=== PATIENT | male | born 1965 | race Caucasian/White ===

== ENCOUNTER 2019-06-12 07:00 | Outpatient (CLI) | payer BC, OTHER ==
[2019-06-12 17:44] LABS: #Basophils 0.1 thou/uL (0.0-0.2); #Eosinphils 0.2 thou/uL (0.0-0.7); #Lymphocytes 2.1 thou/uL (1.20-3.40); #Monocytes 0.5 thou/uL (0.11-0.59); #Neutrophils 3.7 thou/uL (1.40-6.50); %Basophils 1.2 % (0.0-1.0); %Eosinophils 2.9 % (0.0-10.0); %Lymphocytes 31.8 % (21.0-51.0); %Neutrophils 57.2 % (42.0-75.0); Hemoglobin 16.1 g/dL (14.0-18.0); Mean Corpuscular HGB CONC 32.9 g/dL (32.0-36.0); Mean Corpuscular Hemoglobin 31.4 pg (27.0-31.0); Mean Corpuscular Volume 95.4 fL (78.0-98.0); Mean Platelet Volume 8.2 fL (7.4-10.4); Platelet Count 241 thou/uL (130-400); RBC Distribution Width 11.8 % (11.5-14.5); Red Blood Cell (RBC) Count 5.13 mill/uL (4.70-6.10); White Blood Cell (WBC) Count 6.5 thou/uL (4.8-10.8)
[2019-06-12 18:03] LABS: Anion Gap 11 mmol/L (10-20); BUN (Urea Nitrogen) 10 mg/dL (8.4-25.7); Calc. Creatinine Clearance 0 mL/min (70-130); Calcium 9.8 mg/dL (7.8-10.44); Carbon Dioxide 33 mmol/L (22-29); Chloride 102 mmol/L (98-107); Estimated GFR-MDRD Greater than 90; Glucose 75 mg/dL (70-105); Potassium 4.1 mmol/L (3.5-5.1); Sodium 142 mmol/L (136-145)
== END 2019-06-12 07:01 | disposition home or self-care (01) ==
LOC: LABBT 07:00
PROVIDERS: ATTEND Surgery
DX: Z01.812 Encounter for preprocedural laboratory examination (principal); Z11.59 Encounter for screening for other viral diseases; K40.90 Unilateral inguinal hernia, without obstruction or gangrene, not specified as recurrent
CPT/HCPCS: 80048; 85025

== ENCOUNTER 2019-06-16 09:51 | Outpatient (CLI) | payer BC, OTHER ==
[2019-06-16 17:21] LABS: SARS-CoV-2 MS2 Positive; SARS-CoV-2 N Gene Negative; SARS-CoV-2 S Gene Negative; SARS-CoV-2 orf1ab Negative
--- NOTE | 2019-06-21 15:52 | EKG ---
Test Reason : Blood Pressure : / mmHG Vent. Rate : 066 BPM Atrial Rate : 066 BPM P-R Int : 178 ms QRS Dur : 090 ms QT Int : 382 ms P-R-T Axes : 054 068 040 degrees QTc Int : 400 ms Normal sinus rhythm Normal ECG No previous ECGs available Confirmed by SAV GARZA (2) on 06/21/2019 3:51:44 PM Referred By: MIKE Confirmed By:SAV GARZA
== END 2019-06-16 09:52 | disposition home or self-care (01) ==
LOC: LABBT 09:51
PROVIDERS: ATTEND Surgery
DX: Z01.818 Encounter for other preprocedural examination (principal); Z11.59 Encounter for screening for other viral diseases; K40.90 Unilateral inguinal hernia, without obstruction or gangrene, not specified as recurrent
CPT/HCPCS: 87635; 93005; 93010; U0003

== ENCOUNTER 2019-06-17 05:59 | Day surgery (SDC) | payer BC ==
[2019-06-12 15:43] VITALS: BMI 28.2
[2019-06-17] MEDS ORDERED: Midazolam HCl 2 mg/2 ml Vial ONE (06:31)
[2019-06-17] MEDS ORDERED: Fentanyl 100 MCG/2 ML VIAL ONE ×3 (06:31→09:51)
[2019-06-17] MEDS ORDERED: Lidocaine 1% w/Epinephrine 1:100K 20 ML VIAL ONE (06:52)
[2019-06-17] MEDS ORDERED: Bupivacaine 0.25% HCL 30 ML VIAL ONE (06:52)
[2019-06-17] MEDS ORDERED: Levofloxacin 500 mg/D5W 100 ml Premix Bag ONE (07:15)
[2019-06-17] MEDS ORDERED: Ketorolac Tromethamine 30 MG/ML VIAL ONE (09:38)
[2019-06-17] MEDS ORDERED: Lidocaine 1% PF 5 ML VIAL ONE (09:38)
[2019-06-17] MEDS ORDERED: Glycopyrrolate 0.2 MG/ML 5 ML SYRINGE ONE (09:38)
[2019-06-17] MEDS ORDERED: EPHEDRINE 25 MG/5 ML SYRINGE ONE (09:38)
[2019-06-17] MEDS ORDERED: Ondansetron PF 4 MG/2 ML Vial ONE (09:38)
[2019-06-17] MEDS ORDERED: Rocuronium Bromide 10 MG/ML (10ML VIAL) ONE (09:38)
[2019-06-17] MEDS ORDERED: PROPOFOL 200 MG/20 ML VIAL ONE (09:38)
[2019-06-17] MEDS ORDERED: Dexamethasone 20 MG/5 ML VIAL ONE (09:38)
[2019-06-17] MEDS ORDERED: HYDROcodone/Acetaminophen 5/325 mg Tablet ONE (10:52)
--- NOTE | 2019-06-18 09:34 | OP ---
DATE OF PROCEDURE: 06/17/2019 PREOPERATIVE DIAGNOSIS: Bilateral inguinal hernia. POSTOPERATIVE DIAGNOSIS: Bilateral inguinal hernia. PROCEDURE PERFORMED: Da Jesus laparoscopic bilateral inguinal hernia repair with mesh, Bard 3DMax large. ANESTHESIA: General. ESTIMATED BLOOD LOSS: Minimal. COMPLICATIONS: None. SPECIMEN: None. FINDINGS: Bilateral inguinal hernia. DESCRIPTION OF PROCEDURE: The patient was taken to the operating room and laid supine on the operating room table. After general anesthetic was obtained, the abdomen was prepped and draped in a sterile fashion. A Vitale catheter had been placed. A curved incision was made above the umbilicus. Cautery was used to dissect down to and score the fascia. There was a small umbilical hernia. The umbilical stalk was amputated, exposing the umbilical defect. A 12-mm robotic balloon trocar was placed and the balloon inflated. High-flow pneumoperitoneum was obtained. The patient was placed in Trendelenburg position. Left and right abdominal 8-mm robotic trocars were placed. All ports were docked to the robot. Peritoneum was opened in the right lower abdomen into the right groin. Preperitoneal space was bluntly dissected to pubic tubercle medially and to the anterior superior iliac crest laterally. Shelving edge of inguinal ligament was fully exposed. There was a direct defect that was dissected back up high onto the peritoneum. A small indirect sac was dissected high up on above the cord structures as well. The same dissection was performed on the left. There being a larger direct defect, but no indirect defect on the left. The bilateral mesh was brought into the sterile field, placed in the abdomen, and labeled medial aspect of each mesh was placed over pubic tubercles medially. The meshes were laid out to cover the preperitoneal space bilateral. The mesh bilateral covered the direct, indirect, and femoral areas. The bilateral mesh was sewn via 2-0 Vicryl to the pubic tubercle medially and to the posterior fascia laterally. The bilateral peritoneum was reapproximated using 3-0 Stratafix suture. All needles were removed from the abdomen and accounted for. All ports were localized and removed under direct visualization. Pneumoperitoneum was let down. PDS was used to close the fascial defect at the umbilicus. The umbilical stalk was tacked back down using 3-0 Vicryl. All incisions were irrigated and closed using 4-0 Monocryl and Dermabond. The patient was sent to Recovery in stable condition. All instrument counts, needle counts, and lap counts were correct. Job ID: [id number]
== END 2019-06-17 11:30 | disposition home or self-care (01) ==
LOC: SDC 05:59
PROVIDERS: ATTEND Surgery
PROC: 0YUA4JZ Supplement Bilateral Inguinal Region with Synthetic Substitute, Percutaneous Endoscopic Approach (ICD-10-PCS; principal; 2019-06-17)
DX: K40.20 Bilateral inguinal hernia, without obstruction or gangrene, not specified as recurrent (principal); K42.9 Umbilical hernia without obstruction or gangrene; Z79.82 Long term (current) use of aspirin; Z79.899 Other long term (current) drug therapy; Z88.0 Allergy status to penicillin
CPT/HCPCS: C1781; J1100; J1885; J1956; J2001; J2250; J2405; J2704; J3010; S0020

== ENCOUNTER 2023-08-16 10:51 | Outpatient (CLI) | payer BC | END 2023-08-16 10:52 | disposition home or self-care (01) | LOC: SCSMRI 10:51 | PROVIDERS: ATTEND Family Medicine | DX: M47.22 Other spondylosis with radiculopathy, cervical region (principal); M48.02 Spinal stenosis, cervical region | CPT/HCPCS: 72141 ==